=== PATIENT | male | born 1975 | race Caucasian/White ===

== ENCOUNTER 2018-11-18 18:16 | Observation (INO) ==
[2018-11-18] MEDS ORDERED: ASPIRIN 325 MG TABLET PO STA (18:40)
[2018-11-18] MEDS ORDERED: NITROGLYCERIN SL 0.4 MG TABLET SL PRN (18:40)
[2018-11-18 19:01] LABS: Basophils % 0.3 % (0.0-0.8); Eosinophils # 0.1 10*3/uL (0.0-0.87); Eosinophils % 0.8 % (0.00-10.9); Hematocrit 47.6 VOL% (42.0-52.0); Hemoglobin 16.4 GM/DL (14.0-18.0); Immature Granulocytes % 0.2 %; Immature Granulocytes Absolute 0.02 #; Lymphocytes # 1.5 10*3/uL (1.4-4.0); Lymphocytes % 15.4 % (21.2-54.2); Mean Corpuscular HGB Conc 34.5 GM/DL (32-36); Mean Corpuscular Hemoglobin 31 PG (27-34); Mean Corpuscular Volume 88.5 FL (87-102); Mean Platelet Volume 10.8 FL (9.6-12.0); Monocytes # 0.6 10*3/uL (0.11-0.8); Monocytes % 6.3 % (1.7-12.7); Neutrophils # 7.5 10*3/uL (1.4-7.4); Platelet Count 178 T/CUMM (130-400); Red Blood Count 5.38 MC/CUMM (3.8-5.5); Red Cell Distribution Width 13.5 % (9.3-17.3); White Blood Count 9.7 T/CUMM (4-12)
[2018-11-18 19:21] LABS: Apearance,Urine CLEAR (Clear); Bilirubin,Urine Negative (Negative); Blood, Urine Negative (Negative); Glucose,Urine (UA) Negative (Negative); Ketones,Urine Negative (Negative); Nitrite,Urine Negative (Negative); Protein,Urine Negative; RBC,Urine <1 /HPF (0-4); Urine Color Straw (Yellow); Urine Specific Gravity 1.003 (1.001-1.035); Urine Urobilinogen < 2.0 EU/DL (0.2-1.0); WBC,Urine <1 /HPF (0-6)
[2018-11-18 19:32] LABS: Barbiturates Screen,Urine Negative (Negative); Benzodiazepines Screen,Urine Negative (Negative); Cannabinoid Screen,Urine Negative (Negative); Opiate Screen,Urine Negative (Negative); Phencyclidine Screen,Urine Negative (Negative)
[2018-11-18 19:36] LABS: Albumin 4.4 G/DL (3.4-5.0); Bilirubin,Total 0.4 MG/DL (0.2-1.0); Osmolality,Calculated 271.8 MOS/KG (273-304); Potassium 3.7 MMOL/L (3.5-5.1); Total Protein 8.1 G/DL (6.4-8.3)
[2018-11-18] MEDS ORDERED: BISACODYL 5 MG TABLET PO PRN (20:22)
[2018-11-18] MEDS ORDERED: MAGNESIUM SULF RIDER 4 GM in PREMIX 1 EACH IV PRN (20:22)
[2018-11-18] MEDS ORDERED: ONDANSETRON 4 MG/2 ML VIAL IV PRN (20:22)
[2018-11-18] MEDS ORDERED: NICOTINE 21 MG/24 HR PATCH TRANSDERM PRN (20:22)
[2018-11-18] MEDS ORDERED: MAGNESIUM SULF RIDER 2 GM in PREMIX 1 EACH IV PRN (20:22)
[2018-11-18] MEDS ORDERED: ACETAMINOPHEN 325 MG TABLET PO PRN (20:22)
[2018-11-18] MEDS ORDERED: POTASSIUM CHLORIDE 20 MEQ TABLET PO PRN (20:22)
[2018-11-18] MEDS ORDERED: diphenhydrAMINE CAP 25 MG CAPSULE PO PRN (20:22)
[2018-11-18] MEDS ORDERED: PROMETHAZINE 25 MG/1 ML VIAL IM PRN (20:22)
[2018-11-18 21:05] LABS: Risk Ratio 3.12; Thyroid Stimulating Hormone 1.82 uIU/ml (0.358-3.74)
[2018-11-19 02:55] LABS: Calcium 8.6 MG/DL (8.5-10.1); Osmolality,Calculated 280.4 MOS/KG (273-304); Potassium 3.5 MMOL/L (3.5-5.1)
[2018-11-19] MEDS ORDERED: PANTOPRAZOLE 40 MG TABLET PO SCH (09:00)
[2018-11-19] MEDS ORDERED: ASPIRIN 325 MG TABLET PO SCH (09:00)
[2018-11-19 11:48] VITALS: BP 108/70
== END 2018-11-19 12:32 | disposition home or self-care (01) ==
LOC: N.ED 18:16 → N.EDINP 18:16 → N.5E 11-19 01:44
PROVIDERS: ADMIT Internal Medicine; ATTEND Internal Medicine